=== PATIENT | male | born 1980 | race African-American/Black ===

== ENCOUNTER 2016-12-09 12:11 | Emergency (ER) | payer OTHER ==
[~2016-12-09] VITALS: Ht 188 cm; Wt 127.3 kg
[2016-12-09 12:27] VITALS: BP 127/72; PULSE 72; RESP 16; O2SAT 97
[2016-12-09] MEDS ORDERED: Tetracaine 0.5% 4 mL Ophthalmic Solution RIGHT_EYE ONE (12:40)
[2016-12-09] MEDS ORDERED: Fluorescein 0.6 mg Ophthalmic Strip ONE (12:55)
[2016-12-09] MEDS: Fluorescein 0.6 mg Ophthalmic Strip RIGHT_EYE ONE ×2 (12:55→12:58)
--- NOTE | 2016-12-09 13:04 | ED.REPORT ---
HPI-Eye Problem Date of Service Dec 09, 2016 ED Provider: Christ Danielson PA-C Jake is an otherwise healthy 36-year-old male presenting to emergency Department with complaint of a metal shaving in his eye. Patient reports machining a bolt hole while wearing safety glasses when he noticed pain in his right eye. He rinsed thoroughly with water on the site. Now complains of irritation in the medial aspect of his right eye worsened by lateral gaze. Denies blurred vision. Denies contact lens use. Nursing Notes Stated Complaint: METAL SHAVINGS IN EYE/L AND I Chief Complaint: Eye Nursing Notes Reviewed: Yes Allergies: Coded Allergies: No Known Allergies (Unverified , 12/09/16) Scheduled Gentamicin Sulfate (Gentamicin 0.3% Ophthalmic Solution) 5 Ml Drops 2 DRP RIGHT_ EYE QID General Time Seen by MD: 12:34 Chief Complaint Right eye affected Past Medical History Past Medical History Denies Review of Systems Review of Systems Note: Negative unless stated otherwise in history of present illness Physical Exam General: Well appearing, well developed, well nourished, no acute distress. Head: Atraumatic, normocephalic. Right eye: Conjunctiva moderately injected. Negative discharge. Anterior chambers clear. PERRL, EOMI. No foreign bodies noted with lid eversion. A small metallic foreign body is noted in the limbus on the nasal aspect under slit-lamp examination. Left eye: No scleral icterus or injection. No discharge. PERRL, EOMI. Vision grossly intact. ENT: Voice clear, hearing grossly intact. Respiratory: No respiratory distress, no increased work of breathing. Speaks in complete sentences. Skin: Warm and dry. Neurological: Grossly nonfocal. Psychological: alert and oriented. Speech appropriate, linear and logical. Behavior appropriate. Initial Vital Signs Vital Signs (First) Date Time Temp Pulse Resp B/P Pulse Ox O2 Delivery O2 Flow Rate FiO2 12/09/16 12:27 37.1 72 16 127/72 97 Normal Procedures Foreign Body Removal - Eye Time: 13:17 Procedure Performed by: Allied health pract (LINDY Danielson) Consent / Setup / Site Prep: Consent from patient Eye / Location / # FB: Right eye Anesthesia/Equipment/Procedure: Tetracaine, Slit lamp used, Eye lid(s) everted , Cotton swab removal Post-Procedure / Complications: Partial removal (small amount of rust retained. ), Tolerated procedure well, Patient stable Re-Eval/Medical Decision Med Decision/Clinical Course Otherwise healthy 36-year-old male presents emergency Department with right eye irritation that began while he was grinding metal while wearing safety glasses. Reports mild irritation on the nasal aspect of his right eye, worsened by lateral gaze. Denies blurred vision. Physical examination reveals a small metal foreign body in the limbus the nasal aspect of the right eye. This is removed per the note above. I have little concern for penetrating trauma, as the pupil is equal and round, vision is 20/20 , patient reports wearing safety glasses at the time of injury. I discussed the case with Dr. Moore, who evaluated and examined the patient. We agree that while small amount of rust is retained this can be left in place as outside of his visual field. Provided tetanus booster, prescription for gentamicin eyedrops. Provided follow-up referral with L&I provider. Advised regarding primary care follow-up, provided emergency return precautions. Patient verbalized understanding of, and consent to, the plan.. Discharge & Departure Primary Impression: Foreign body, eye Encounter type: initial encounter Laterality: right Qualified Code: T15.91XA - Foreign body on external eye, part unspecified, right eye, initial encounter Disposition: Home Discharge Condition All VS Reviewed: Yes Condition: Stable Patient Instructions: Eye Foreign Body (ED) Additional Instructions: Evaluation in the emergency department for right eye pain includes interview and physical examination which revealed a small piece of metal on the surface of your eye. This was removed. I have written a prescription for gentamicin eyedrops to prevent infection. We have updated your tetanus vaccination. Please follow up with Dr. Wojciech Medina in about one week to be sure this is resolving as expected. Return emergency Department for any new or worsening symptoms including changes in your vision, increasing pain. Referrals: NOPCP (PCP) Wojciech Medina MD [facility] Provider for APC: Juan Moore MD copies to: Wojciech Medina MD, Seth PA-C Dec 09, 2016 13:04
[2016-12-09] MEDS ORDERED: GENT5DRO26 RIGHT_EYE (13:29)
[2016-12-09] MEDS ORDERED: TdaP Vaccine 0.5 mL Inj IM ONE (13:30)
[2016-12-09 14:00] VITALS: BP 127/72; PULSE 72; RESP 16; O2SAT 97
== END 2016-12-09 13:45 | disposition home or self-care (01) ==
LOC: SED 12:11
DX: T15.81XA Foreign body in other and multiple parts of external eye, right eye, initial encounter (principal); W29.8XXA Contact with other powered hand tools and household machinery, initial encounter; Y93.89 Activity, other specified; Y92.9 Unspecified place or not applicable; Y99.8 Other external cause status; Z23 Encounter for immunization